=== PATIENT | male | born 1965 | race Two or more races ===

== ENCOUNTER 2025-05-12 08:24 | Inpatient (IN) | payer OTHER ==
[2025-05-12 08:50] VITALS: BMI 23.4
[2025-05-12] MEDS ORDERED: BENZOCAINE/MENTHOL (CHLORASEPTIC ) LOZENGE MM PRN (09:03)
[2025-05-12] MEDS ORDERED: BENZONATATE 200 MG CAPSULE PO PRN (09:03)
[2025-05-12] MEDS ORDERED: hydrOXYzine PAMOATE 25 MG CAPSULE (FP) PO PRN (09:03)
[2025-05-12] MEDS ORDERED: guaiFENesin 600 MG TABLET.ER (FP) PO PRN (09:03)
[2025-05-12] MEDS ORDERED: MAGNESIUM HYDROX 2400MG/30ML ORAL SUSPENSION 30 ML CUP PO PRN (09:03)
[2025-05-12] MEDS ORDERED: LOPERAMIDE HCL 2 MG CAPSULE PO PRN (09:03)
[2025-05-12] MEDS ORDERED: IBUPROFEN 600 MG TABLET (FP) PO PRN (09:03)
[2025-05-12] MEDS ORDERED: BISMUTH SUBSALICYLATE 524 MG/30 ML PO PRN (09:03)
[2025-05-12] MEDS ORDERED: DICYCLOMINE HCL 10 MG CAPSULE PO PRN (09:03)
[2025-05-12] MEDS ORDERED: ONDANSETRON *ODT* 4 MG TABLET SL PRN (09:03)
[2025-05-12] MEDS ORDERED: NALOXONE (NARCAN) HCL 4 MG/0.1 ML SPRAY NS PRN (09:03)
[2025-05-12] MEDS ORDERED: MAG HYDROX/AL HYDROX/SIMETH 30 ML UNIT-DOSE CUP PO PRN (09:03)
[2025-05-12] MEDS ORDERED: IBUPROFEN 400 MG TABLET (FP) PO PRN (09:03)
[2025-05-12] MEDS ORDERED: ACETAMINOPHEN 325 MG TABLET (FP) PO PRN (09:03)
[2025-05-12] MEDS ORDERED: POLYETHYLENE GLYCOL (HEALTHYLAX) 3350 17 GM PACKET PO PRN (09:03)
[2025-05-12] MEDS ORDERED: PRENATAL VITAMINS W/ FOLIC ACID TABLET (FP) PO ONE (09:39)
[2025-05-12] MEDS: INSULIN ASPART SLIDING SCALE (NOVOLOG) 1 VIAL SQ SCH (09:46)
[2025-05-12] MEDS: PRENATAL VITAMINS W/ FOLIC ACID TABLET (FP) PO SCH (09:46)
[2025-05-12] MEDS: THIAMINE 100 MG TABLET PO SCH (22:09)
[2025-05-12] MEDS: MELATONIN 5 MG TABLETS PO SCH (22:10)
[2025-05-13] MEDS: METHOCARBAMOL 500 MG TABLET PO PRN (05:37)
[2025-05-13 11:36] LABS: MCHC 32.4 g/dl (32.3-36.5); MEAN CELL VOLUME 78.3 fl (79.0-92.2); MEAN PLT VOLUME 10.5 fl (9.4-12.4); RDW 19.9 % (12.2-16.1)
[2025-05-13 12:00] LABS: GLUCOSE,RANDOM 319 mg/dL (74-106); TOT PROT 7.4 g/dl (6.4-8.2)
[2025-05-13 12:01] LABS: CO2 29 mmol/L (21-32)
[2025-05-13 12:03] LABS: ALK PHOS 166 U/L (40-150)
[2025-05-13 12:05] LABS: CREATININE 0.67 mg/dL (0.55-1.3); SGOT/AST 87 U/L (5-34); SGPT/ALT 49 U/L (0-55)
[2025-05-13] MEDS: amLODIPine BESYLATE 5 MG TABLET (FP) PO SCH (13:29)
[2025-05-13] MEDS: SUVOREXANT 10 MG TABLET PO PRN (22:22)
[2025-05-16 08:36] VITALS: BP 128/75; PULSE 92; RESP 17; TEMP 97.8
== END 2025-05-16 09:36 | disposition home or self-care (01) | DRG 775 ==
LOC: YASAS 08:24 → Y6N 09:47
PROVIDERS: ADMIT Neuromusculoskeletal Medicine & OMM; ATTEND Counselor Addiction (Substance Use Disorder)
PROC: HZ2ZZZZ Detoxification Services for Substance Abuse Treatment (ICD-10-PCS; principal; 2025-05-12)
DX: F10.230 Alcohol dependence with withdrawal, uncomplicated (principal); I10 Essential (primary) hypertension; R73.03 Prediabetes; F17.210 Nicotine dependence, cigarettes, uncomplicated; G47.00 Insomnia, unspecified
CPT/HCPCS: 36415; 80053; 80305; 80307; 82962; 83036; 85027; 86780; 93005; 93010